=== PATIENT | female | born 2005 | race Caucasian/White ===

== ENCOUNTER 2023-10-17 21:17 | Emergency (ER) | payer OTHER ==
[2023-10-17 21:23] VITALS: BP 139/88; PULSE 94; RESP 16; TEMP 98.6; BMI 29.0
[2023-10-17 21:43] LABS: EPI CELLS 10 /uL (0-25.1); HYALINE CASTS 1 /uL (0-3.1); URINE APPEARANCE CLOUDY; URINE BACTERIA 3259 /uL (0-1359); URINE BILIRUBIN NEGATIVE (NEGATIVE); URINE COLOR YELLOW; URINE GLUCOSE (UA) NEGATIVE (NEGATIVE); URINE KETONE NEGATIVE (NEGATIVE); URINE LEUK ESTERASE 3+ (NEGATIVE); URINE NITRITE NEGATIVE (NEGATIVE); URINE PROTEIN 2+ (NEGATIVE); URINE RBC 1133 /uL (0-23.9); URINE UROBILINOGEN 0.2 mg/dL (0.2-1.0); URINE WBC 3888 /uL (0-25.8)
[2023-10-17] MEDS ORDERED: SULFAMETHOXAZOLE/TRIMETHOPRIM 800MG/160MG D.S. TABLET ONE (21:57)
[2023-10-17] MEDS: SULFAMETHOXAZOLE/TRIMETHOPRIM 800MG/160MG D.S. TABLET PO ONE (21:58)
[2023-10-17 23:38] LABS: HIV INTERPRETATION NEGATIVE (NEGATIVE)
== END 2023-10-17 21:59 | disposition home or self-care (01) ==
LOC: JERFT 21:17
DX: R39.11 Hesitancy of micturition (principal); R30.0 Dysuria; N39.0 Urinary tract infection, site not specified
CPT/HCPCS: 36415; 81003; 84703; 86803; 87086; 87186; 87389; 87491; 87591; 99283-25